=== PATIENT | male | born 1955 | race Caucasian/White ===

== ENCOUNTER 2023-10-09 07:47 | Day surgery (SDC) | payer OTHER, MEDICAID ==
[2023-10-08 09:41] VITALS: BMI 31.5
[2023-10-09] MEDS: Ipratropium/Albuterol 3 ML NEB NEB SCH (10:40)
[2023-10-09] MEDS ORDERED: PROPOFOL 40 ML ONE (10:40)
[2023-10-09] MEDS ORDERED: Ipratropium/Albuterol 3 ML NEB ONE (10:48)
[2023-10-09] MEDS ORDERED: fentaNYL 50 mcg/mL 1 mL Vial ONE (11:08)
[2023-10-09] MEDS ORDERED: PROPOFOL 20 ML ONE (11:23)
== END 2023-10-09 12:20 | disposition home or self-care (01) ==
LOC: CSHSDC 07:47
PROVIDERS: ATTEND Internal Medicine Gastroenterology
PROC: 0DBN8ZZ Excision of Sigmoid Colon, Via Natural or Artificial Opening Endoscopic (ICD-10-PCS; principal; 2023-10-09)
DX: Z12.11 Encounter for screening for malignant neoplasm of colon (principal); D12.5 Benign neoplasm of sigmoid colon; K57.30 Diverticulosis of large intestine without perforation or abscess without bleeding; Q85.00 Neurofibromatosis, unspecified; I10 Essential (primary) hypertension; J44.9 Chronic obstructive pulmonary disease, unspecified; M54.30 Sciatica, unspecified side; M10.9 Gout, unspecified; F17.210 Nicotine dependence, cigarettes, uncomplicated; F41.9 Anxiety disorder, unspecified; F32.A Depression, unspecified; Z79.899 Other long term (current) drug therapy
CPT/HCPCS: 45385; 94640; J3010; 88305; J2704; J7620

== ENCOUNTER 2023-12-11 09:11 | Outpatient (CLI) | payer OTHER, MEDICAID ==
[2023-12-11] MEDS ORDERED: Magnevist 469MG/ML 20 ML VIAL ONE (10:19)
== END 2023-12-11 09:12 | disposition home or self-care (01) ==
LOC: CSHMRI 09:11
PROVIDERS: ATTEND Podiatrist
DX: L97.512 Non-pressure chronic ulcer of other part of right foot with fat layer exposed (principal); I73.89 Other specified peripheral vascular diseases; M79.674 Pain in right toe(s)
CPT/HCPCS: 82565

== ENCOUNTER 2024-02-11 14:10 | Outpatient (CLI) | payer MEDICARE | END 2024-02-11 14:11 | disposition home or self-care (01) | LOC: CSHWCC 14:10 | PROVIDERS: ATTEND Family Medicine | DX: E11.621 Type 2 diabetes mellitus with foot ulcer (principal); L97.512 Non-pressure chronic ulcer of other part of right foot with fat layer exposed ==

== ENCOUNTER 2024-02-25 11:09 | Outpatient (CLI) | payer MEDICARE | END 2024-02-25 11:10 | disposition home or self-care (01) | LOC: CSHWCC 11:09 | PROVIDERS: ATTEND Nurse Practitioner Family | DX: E11.621 Type 2 diabetes mellitus with foot ulcer (principal); L97.512 Non-pressure chronic ulcer of other part of right foot with fat layer exposed | CPT/HCPCS: 11042 ==

== ENCOUNTER 2024-03-11 11:34 | Outpatient (CLI) | payer MEDICARE | END 2024-03-11 11:35 | disposition home or self-care (01) | LOC: CSHWCC 11:34 | PROVIDERS: ATTEND Nurse Practitioner Family | DX: E11.621 Type 2 diabetes mellitus with foot ulcer (principal); L97.512 Non-pressure chronic ulcer of other part of right foot with fat layer exposed | CPT/HCPCS: 11042 ==

== ENCOUNTER 2024-03-25 09:25 | Outpatient (CLI) | payer MEDICARE | END 2024-03-25 09:26 | disposition home or self-care (01) | LOC: CSHWCC 09:25 | PROVIDERS: ATTEND Nurse Practitioner Family | DX: E11.621 Type 2 diabetes mellitus with foot ulcer (principal); L97.512 Non-pressure chronic ulcer of other part of right foot with fat layer exposed | CPT/HCPCS: 99213; G0463 ==

== ENCOUNTER 2024-06-22 08:49 | Inpatient (IN) | payer MEDICARE ==
[2024-06-22] MEDS ORDERED: Piperacillin/Tazobactam 3.375 GM VIAL ONE (09:51)
[2024-06-22 10:00] LABS: #Basophils 0.05 10x3/uL (0.0-0.2); #Eosinophils 0.51 10x3/uL (0.0-0.5); #Monocytes 0.71 10x3/uL (0.0-1.1); #Neutrophils 4.03 10x3/uL (1.5-8.4); %Basophils 0.6 % (0.0-2.0); %Eosinophils 6.6 % (0.0-6.0); %Lymphocytes 30.9 % (18.0-47.0); %Monocytes 9.2 % (0.0-10.0); %Neutrophils 52.3 % (40.0-75.0); Hematocrit 36.6 % (38.8-50.0); Hemoglobin 11.6 g/dL (13.5-17.5); Mean Corpuscular HGB CONC 31.7 g/dL (32.0-36.0); Mean Corpuscular Hemoglobin 29.2 pg (27.0-33.0); Mean Corpuscular Volume 92.2 fL (81.2-95.1); Mean Platelet Volume 9.8 fL (7.4-10.4); Platelet Count 224 10x3/uL (150-450); RBC Distribution Width 13.5 % (11.5-14.5); Red Blood Cell (RBC) Count 3.97 10x6/uL (4.32-5.72); White Blood Cell (WBC) Count 7.7 10x3/uL (3.5-10.5)
[2024-06-22 10:19] LABS: ALT (SGPT) 20 U/L (8-55); AST (SGOT) 23 U/L (5-34); Albumin 3.6 g/dL (3.4-4.8); Alkaline Phosphatase 71 U/L (40-110); Anion Gap 13 mmol/L (10-20); BUN (Urea Nitrogen) 10 mg/dL (8.4-25.7); Bilirubin, Total 0.3 mg/dL (0.2-1.2); Calc. Creatinine Clearance 0 mL/min (70-130); Calcium 9.2 mg/dL (7.8-10.44); Carbon Dioxide 23 mmol/L (23-31); Chloride 107 mmol/L (98-107); Estimated GFR 97; Globulin 4.1 g/dL (2.4-3.5); Glucose 113 mg/dL (80-115); Potassium 4.1 mmol/L (3.5-5.1); Protein, Total 7.7 g/dL (5.8-8.1); Sodium 139 mmol/L (136-145)
[2024-06-22] MEDS ORDERED: Magnevist 469MG/ML 20 ML VIAL ONE (11:22)
[2024-06-22] MEDS ORDERED: Morphine 4 MG/ML VIAL ONE (12:06)
[2024-06-22 13:50] VITALS: BMI 32.3
[2024-06-22] MEDS ORDERED: Acetaminophen 325 MG TAB PO PRN (14:04)
[2024-06-22] MEDS ORDERED: Ondansetron ODT 4 MG TAB PO PRN (14:04)
[2024-06-22] MEDS: VANCOMYCIN 2 GRAM/400 ML BAG 2 GM in Premix 1 BAG IVPB SCH (15:29)
[2024-06-22] MEDS: Gabapentin 300 MG CAP PO SCH (15:29)
[2024-06-22] MEDS: FLU (Fluad Triv) TS24-25 (65UP)/MF59C/PF 45 MCG/0.5 ML Syringe IM ONE (15:30)
[2024-06-22] MEDS: Morphine 4 MG/ML VIAL SLOW IVP PRN (15:31)
[2024-06-22] MEDS: Piperacillin/Tazobactam 3.375 GM in Sodium Chloride 0.9% 100 ML IVPB SCH ×3 (15:44→20:00)
[2024-06-22] MEDS: Vancomycin 1.5 GRAM/300 ML BAG 1.5 GM in Premix 1 BAG IVPB SCH (21:45)
[2024-06-23] MEDS: Amlodipine 5 MG TAB PO SCH ×2 (00:06→09:37)
[2024-06-23 05:12] LABS: Anion Gap 16 mmol/L (10-20); BUN (Urea Nitrogen) 8 mg/dL (8.4-25.7); Calc. Creatinine Clearance 127 mL/min (70-130); Calcium 9.6 mg/dL (7.8-10.44); Carbon Dioxide 22 mmol/L (23-31); Chloride 105 mmol/L (98-107); Estimated GFR 96; Glucose 106 mg/dL (80-115); Potassium 4.2 mmol/L (3.5-5.1); Sodium 139 mmol/L (136-145)
[2024-06-23 07:08] LABS: Vancomycin, Random 6.9 ug/mL (See Comment)
[2024-06-23 07:31] LABS: #Basophils 0.08 10x3/uL (0.0-0.2); #Eosinophils 0.69 10x3/uL (0.0-0.5); #Monocytes 0.84 10x3/uL (0.0-1.1); #Neutrophils 6.45 10x3/uL (1.5-8.4); %Basophils 0.8 % (0.0-2.0); %Eosinophils 6.7 % (0.0-6.0); %Lymphocytes 21.8 % (18.0-47.0); %Monocytes 8.1 % (0.0-10.0); %Neutrophils 62.4 % (40.0-75.0); Hematocrit 40.8 % (38.8-50.0); Mean Corpuscular HGB CONC 31.9 g/dL (32.0-36.0); Mean Corpuscular Hemoglobin 28.6 pg (27.0-33.0); Mean Corpuscular Volume 89.9 fL (81.2-95.1); Mean Platelet Volume 9.7 fL (7.4-10.4); Platelet Count 269 10x3/uL (150-450); RBC Distribution Width 13.4 % (11.5-14.5); Red Blood Cell (RBC) Count 4.54 10x6/uL (4.32-5.72); White Blood Cell (WBC) Count 10.3 10x3/uL (3.5-10.5)
[2024-06-23] MEDS: DULoxetine 30 MG CAP PO SCH (09:36)
[2024-06-23] MEDS: Enoxaparin 40 MG (0.4 mL) SYRINGE SC SCH (09:37)
[2024-06-23] MEDS: Pantoprazole DR 40 MG TAB PO SCH (09:37)
[2024-06-23] MEDS: Losartan 50 MG TAB PO SCH (09:37)
[2024-06-23 10:52] VITALS: BMI 32.3
[2024-06-23] MEDS: Nicotine 14 MG PATCH TD SCH (11:10)
[2024-06-23] MEDS: HYDROcodone/Acetaminophen 10/325 mg Tablet PO PRN (13:11)
[2024-06-23 13:31] LABS: Hemoglobin A1c 5.9 % (4.0-6.0)
[2024-06-24 03:57] LABS: #Basophils 0.06 10x3/uL (0.0-0.2); #Monocytes 0.96 10x3/uL (0.0-1.1); #Neutrophils 6.11 10x3/uL (1.5-8.4); %Basophils 0.6 % (0.0-2.0); %Eosinophils 4.6 % (0.0-6.0); %Lymphocytes 29.4 % (18.0-47.0); %Monocytes 8.8 % (0.0-10.0); %Neutrophils 56.2 % (40.0-75.0); Hemoglobin 13.4 g/dL (13.5-17.5); Mean Corpuscular HGB CONC 31.9 g/dL (32.0-36.0); Mean Corpuscular Hemoglobin 28.9 pg (27.0-33.0); Mean Corpuscular Volume 90.7 fL (81.2-95.1); Mean Platelet Volume 9.7 fL (7.4-10.4); Platelet Count 276 10x3/uL (150-450); RBC Distribution Width 13.4 % (11.5-14.5); Red Blood Cell (RBC) Count 4.63 10x6/uL (4.32-5.72); White Blood Cell (WBC) Count 10.9 10x3/uL (3.5-10.5)
[2024-06-24 04:05] LABS: Anion Gap 15 mmol/L (10-20); BUN (Urea Nitrogen) 11 mg/dL (8.4-25.7); Calc. Creatinine Clearance 124 mL/min (70-130); Calcium 9.3 mg/dL (7.8-10.44); Carbon Dioxide 20 mmol/L (23-31); Chloride 105 mmol/L (98-107); Estimated GFR 95; Glucose 111 mg/dL (80-115); Potassium 4.2 mmol/L (3.5-5.1); Sodium 136 mmol/L (136-145)
[2024-06-24] MEDS ORDERED: fentaNYL 50 mcg/mL 1 mL Vial ONE (12:32)
[2024-06-24] MEDS ORDERED: Ondansetron PF 4 MG/2 ML Vial ONE (12:32)
[2024-06-24] MEDS ORDERED: Lidocaine 1% PF 5 ML VIAL ONE (12:32)
[2024-06-24] MEDS ORDERED: PROPOFOL 20 ML ONE (12:32)
[2024-06-24] MEDS ORDERED: Glycopyrrolate 0.2 MG/ML 5 ML SYRINGE ONE (13:18)
[2024-06-24] MEDS ORDERED: traMADol HCl 50 MG TAB PO PRN (15:30)
[2024-06-25 03:56] LABS: #Basophils 0.06 10x3/uL (0.0-0.2); #Eosinophils 0.47 10x3/uL (0.0-0.5); #Monocytes 0.81 10x3/uL (0.0-1.1); #Neutrophils 5.01 10x3/uL (1.5-8.4); %Basophils 0.7 % (0.0-2.0); %Eosinophils 5.3 % (0.0-6.0); %Lymphocytes 27.5 % (18.0-47.0); %Monocytes 9.2 % (0.0-10.0); %Neutrophils 57.1 % (40.0-75.0); Anion Gap 16 mmol/L (10-20); BUN (Urea Nitrogen) 14 mg/dL (8.4-25.7); Calc. Creatinine Clearance 124 mL/min (70-130); Carbon Dioxide 17 mmol/L (23-31); Chloride 108 mmol/L (98-107); Estimated GFR 95; Glucose 102 mg/dL (80-115); Hematocrit 40.3 % (38.8-50.0); Mean Corpuscular HGB CONC 32.3 g/dL (32.0-36.0); Mean Corpuscular Hemoglobin 29.5 pg (27.0-33.0); Mean Corpuscular Volume 91.6 fL (81.2-95.1); Mean Platelet Volume 9.4 fL (7.4-10.4); Platelet Count 265 10x3/uL (150-450); Potassium 4.1 mmol/L (3.5-5.1); RBC Distribution Width 13.6 % (11.5-14.5); Sodium 137 mmol/L (136-145); White Blood Cell (WBC) Count 8.8 10x3/uL (3.5-10.5)
[2024-06-25] MEDS ORDERED: Nicotine 14 MG PATCH TD PRN (10:26)
[2024-06-25] MEDS ORDERED: Polyethylene Glycol 3350 17 GM Packet PO PRN (10:28)
[2024-06-25] MEDS: Senokot S 8.6-50 MG TAB PO SCH (20:17)
[2024-06-26 04:03] LABS: #Basophils 0.07 10x3/uL (0.0-0.2); #Eosinophils 0.65 10x3/uL (0.0-0.5); #Neutrophils 5.19 10x3/uL (1.5-8.4); %Basophils 0.7 % (0.0-2.0); %Eosinophils 6.7 % (0.0-6.0); %Lymphocytes 29.8 % (18.0-47.0); %Monocytes 9.2 % (0.0-10.0); %Neutrophils 53.3 % (40.0-75.0); Hematocrit 39.2 % (38.8-50.0); Hemoglobin 13.1 g/dL (13.5-17.5); Mean Corpuscular HGB CONC 33.4 g/dL (32.0-36.0); Mean Corpuscular Hemoglobin 29.7 pg (27.0-33.0); Mean Corpuscular Volume 88.9 fL (81.2-95.1); Mean Platelet Volume 9.4 fL (7.4-10.4); Platelet Count 256 10x3/uL (150-450); RBC Distribution Width 13.4 % (11.5-14.5); Red Blood Cell (RBC) Count 4.41 10x6/uL (4.32-5.72); White Blood Cell (WBC) Count 9.8 10x3/uL (3.5-10.5)
[2024-06-26 04:10] LABS: Anion Gap 13 mmol/L (10-20); BUN (Urea Nitrogen) 12 mg/dL (8.4-25.7); Calc. Creatinine Clearance 124 mL/min (70-130); Calcium 9.7 mg/dL (7.8-10.44); Carbon Dioxide 22 mmol/L (23-31); Chloride 105 mmol/L (98-107); Estimated GFR 95; Glucose 105 mg/dL (80-115); Potassium 4.2 mmol/L (3.5-5.1); Sodium 136 mmol/L (136-145); Vancomycin, Random 21.9 ug/mL (See Comment)
[2024-06-26] MEDS ORDERED: Morphine 4 MG/ML VIAL SLOW IVP PRN (09:15)
[2024-06-26] MEDS: tiZANidine HCl 4 MG TAB PO PRN (20:35)
[2024-06-27 12:02] VITALS: BP 155/76; TEMP 98.1
== END 2024-06-27 13:30 | disposition home or self-care (01) | DRG 617 ==
LOC: CSHERS 08:49 → CSHTELE 13:17 → OBSVTOIN 14:04
PROVIDERS: ADMIT Family Medicine; ATTEND Internal Medicine
PROC: 0Y6M0ZC Detachment at Right Foot, Partial 3rd Ray, Open Approach (ICD-10-PCS; principal; 2024-06-24)
DX: E11.69 Type 2 diabetes mellitus with other specified complication (principal); L03.115 Cellulitis of right lower limb; M86.171 Other acute osteomyelitis, right ankle and foot; E11.621 Type 2 diabetes mellitus with foot ulcer; L97.519 Non-pressure chronic ulcer of other part of right foot with unspecified severity; B95.62 Methicillin resistant Staphylococcus aureus infection as the cause of diseases classified elsewhere; E66.9 Obesity, unspecified; I10 Essential (primary) hypertension; K21.9 Gastro-esophageal reflux disease without esophagitis; G89.4 Chronic pain syndrome; D50.9 Iron deficiency anemia, unspecified; F17.210 Nicotine dependence, cigarettes, uncomplicated; Q85.00 Neurofibromatosis, unspecified; E11.42 Type 2 diabetes mellitus with diabetic polyneuropathy; L03.031 Cellulitis of right toe; Z88.8 Allergy status to other drugs, medicaments and biological substances; Z89.421 Acquired absence of other right toe(s); Z71.6 Tobacco abuse counseling; Z68.32 Body mass index [BMI] 32.0-32.9, adult
CPT/HCPCS: 36415; 36416; 71045; 80048; 80053; 80202; 83036; 83605; 84145; 85025; 86140; 87040; 87070; 87077; 87102; 87116; 87186; 87205; 87206; 93005; 93010; 94760; 94762; 96365; 96375; 97139; C1713; G0378; J1650; J2272; J2405; J2543; J2704; J3010; J3370

== ENCOUNTER 2024-06-29 14:13 | Outpatient (CLI) | payer MEDICARE | END 2024-06-29 14:14 | disposition home or self-care (01) | LOC: CSHWCC 14:13 | PROVIDERS: ATTEND Nurse Practitioner Family | DX: T81.329D Deep disruption or dehiscence of operation wound, unspecified, subsequent encounter (principal); E11.621 Type 2 diabetes mellitus with foot ulcer; L97.509 Non-pressure chronic ulcer of other part of unspecified foot with unspecified severity | CPT/HCPCS: 11042; G0463; 99213 ==

== ENCOUNTER 2024-07-06 14:14 | Outpatient (CLI) | payer MEDICARE | END 2024-07-06 14:15 | disposition home or self-care (01) | LOC: CSHWCC 14:14 | PROVIDERS: ATTEND Nurse Practitioner Family | DX: T81.329D Deep disruption or dehiscence of operation wound, unspecified, subsequent encounter (principal); E11.621 Type 2 diabetes mellitus with foot ulcer; L97.509 Non-pressure chronic ulcer of other part of unspecified foot with unspecified severity | CPT/HCPCS: 11042 ==

== ENCOUNTER 2024-07-21 08:57 | Outpatient (CLI) | payer MEDICARE | END 2024-07-21 08:58 | disposition home or self-care (01) | LOC: CSHWCC 08:57 | PROVIDERS: ATTEND Nurse Practitioner Family | DX: T81.329D Deep disruption or dehiscence of operation wound, unspecified, subsequent encounter (principal); E11.621 Type 2 diabetes mellitus with foot ulcer; L97.509 Non-pressure chronic ulcer of other part of unspecified foot with unspecified severity | CPT/HCPCS: 11042 ==

== ENCOUNTER 2024-07-28 10:35 | Outpatient (CLI) | payer MEDICARE | END 2024-07-28 10:36 | disposition home or self-care (01) | LOC: CSHWCC 10:35 | PROVIDERS: ATTEND Nurse Practitioner Family | DX: T81.329D Deep disruption or dehiscence of operation wound, unspecified, subsequent encounter (principal); E11.621 Type 2 diabetes mellitus with foot ulcer; L97.509 Non-pressure chronic ulcer of other part of unspecified foot with unspecified severity | CPT/HCPCS: 11042 ==

== ENCOUNTER 2024-08-04 12:00 | Outpatient (CLI) | payer MEDICARE | END 2024-08-04 12:01 | disposition home or self-care (01) | LOC: CSHWCC 12:00 | PROVIDERS: ATTEND Nurse Practitioner Family | DX: E11.621 Type 2 diabetes mellitus with foot ulcer (principal); T81.329D Deep disruption or dehiscence of operation wound, unspecified, subsequent encounter | CPT/HCPCS: 11042 ==

== ENCOUNTER 2024-08-18 11:48 | Outpatient (CLI) | payer MEDICARE | END 2024-08-18 11:49 | disposition home or self-care (01) | LOC: CSHWCC 11:48 | PROVIDERS: ATTEND Nurse Practitioner Family | DX: E11.621 Type 2 diabetes mellitus with foot ulcer (principal); L97.512 Non-pressure chronic ulcer of other part of right foot with fat layer exposed | CPT/HCPCS: 11042; G0463; 99212 ==

== ENCOUNTER 2024-08-24 11:18 | Outpatient (CLI) | payer MEDICARE | END 2024-08-24 11:19 | disposition home or self-care (01) | LOC: CSHWCC 11:18 | PROVIDERS: ATTEND Nurse Practitioner Family | DX: E11.621 Type 2 diabetes mellitus with foot ulcer (principal); L97.512 Non-pressure chronic ulcer of other part of right foot with fat layer exposed | CPT/HCPCS: 11042 ==

== ENCOUNTER 2024-08-30 10:50 | Outpatient (CLI) | payer MEDICARE | END 2024-08-30 10:51 | disposition home or self-care (01) | LOC: CSHWCC 10:50 | PROVIDERS: ATTEND Nurse Practitioner Family | DX: E11.621 Type 2 diabetes mellitus with foot ulcer (principal); L97.512 Non-pressure chronic ulcer of other part of right foot with fat layer exposed | CPT/HCPCS: 11042 ==

== ENCOUNTER 2024-09-13 10:28 | Outpatient (CLI) | payer MEDICARE | END 2024-09-13 10:29 | disposition home or self-care (01) | LOC: CSHWCC 10:28 | PROVIDERS: ATTEND Nurse Practitioner Family | DX: E11.621 Type 2 diabetes mellitus with foot ulcer (principal); L97.512 Non-pressure chronic ulcer of other part of right foot with fat layer exposed | CPT/HCPCS: 99212; G0463 ==